=== PATIENT | female | born 2000 | race Caucasian/White ===

== ENCOUNTER 2023-12-28 00:29 | Day surgery (SDC) | payer OTHER, SELFPAY ==
[2023-12-26 13:29] VITALS: BMI 23.4
--- NOTE | 2023-12-26 13:34 | PC.NURSE ---
Addendum entered by Jcarlos Sykes RN 12/26/23 15:36: Patient rescheduled to arrive at 1130am on 12-28-2023 for surgery at 130pm. Original Note: Report to the Outpatient Waiting Room, entrance under the green pavilion located off [facility], at time _1200_ on date _[id number]_. Planned Procedure Time: _2pm_.? Time changes happen often and if your time is changed the preop area will call you the afternoon before. - You and your visitor will be asked to self-screen and do not enter if you have any COVID symptoms. Please call surgeon if you need to reschedule. - A mask is optional within the hospital at this time. Patients may have clear liquids (water, carbonated beverages, clear teas, apple juice) until 3 hours prior to surgery with a maximum of 20 ounces. - No food from midnight until time of surgery and no smoking Take only the following medications with a SIP of water on the morning of surgery: ____None DO NOT STOP ANY OF YOUR OTHER PRESCRIPTION MEDICATIONS PRIOR TO SURGERY EXCEPT THE FOLLOWING Medications to discontinue per physician ___None Please no make-up, nail montserratian, hairspray, perfume, deodorant, or body powder the day of surgery.? No jewelry (including any body piercings) or valuables the day of surgery, leave them at home.? Please take a shower or bath the night before, or the morning of, surgery with an antibacterial soap.? Wear comfortable, loose fitting clothing.? - Jewelry must be removed prior to entering the operating room.? Rings and piercings that are not removed may be cut off. - The hospital will not accept responsibility for valuables.? - Please leave all valuables, including medications, at home the day of surgery. If you are going home after surgery, a licensed local tanker truck driver must drive you home.? - NO public transportation without another adult if you receive anesthesia. - We recommend that an adult stay with you for 24 hours following discharge. - We also recommend that you do not drive, make important decision, drink alcoholic beverages, or take any drugs that were not prescribed by your health care provider for at least 24 hours after your discharge time. Follow any additional instructions given to you from your surgeon. Telephone instructions given to __Marijaamie___and asked if any additional questions and then verbalized understanding. Patient advised to call surgeon office or pre surgery nurse liaison [phone] if any additional questions.
[2023-12-28 11:44] VITALS: BP 104/65; PULSE 83; RESP 18; TEMP 36.3; O2SAT 100
[2023-12-28] MEDS: ACETAMINOPHEN 500 MG TABLET 1000 MG PO (11:55)
[2023-12-28] MEDS: LACTATED RINGERS 1,000 ML 30 ML IV CONT (12:00)
--- NOTE | 2023-12-28 13:26 | P.PNAN_ITS ---
Anes - Initial Pre Proc Eval Procedure: Operation Date: 12/28/23 13:30 Proposed Procedures p Suction Dilation and Curettage - Everett Cat MD Date/Time: 12/28/23 13:26 Surgeon: Everett Cat MD Pre Op Diagnosis: Missed AB Patient Data Age: 23 Gender: F Height: 1.52 m Weight: 54.6 kg Last Vital Signs Temp 36.3 C L 12/28/23 11:44 Pulse 83 12/28/23 11:44 Resp 18 12/28/23 11:44 BP 104/65 12/28/23 11:44 Pulse Ox 100 12/28/23 11:44 O2 Del Method Room Air 12/28/23 11:44 Allergies Allergy/AdvReac Type Severity Reaction Status Date / Time shellfish derived Allergy Severe Swelling Verified 12/28/23 11:41 Home Medications Medication Instructions Recorded Confirmed Type No Home Medications 12/26/23 12/28/23 History Laboratory Tests 12/28/23 11:57 Blood Type B Negative Antibody Screen Positive Antibody Identification Pending Antigen Identification Pending JOHNATHAN, IgG Interpret Pending JOHNATHAN, Poly Interpret Pending JOHNATHAN, Complement Interp Pending Screen Not Reportable Baby's Blood Type Not Reportable Baby's JOHNATHAN Not Reportable Doses of RhIg Required Pending Patient hx anesthesia problems: none Family hx anesthesia problems: none Results Review: All pre-operative results and documents have been reviewed as part of the pre- operative evaluation. COUNT INCLUDES THE [facility] Social History Social History Tobacco type: e-cigarettes/vaping Alcohol intake: current Living arrangements: with family Spiritual care concerns: No Anes - Eval Final PreProcedure Day of Procedure 12/28/23 13:26 Patient weight: normal Heart: regular rate and rhythm Lungs: clear to auscultation and normal air movement Airway: Mallampati scale class II Neurological: alert and oriented Last oral intake: >/= 8 hours ASA classification: II Emergent: no Anesthetic plan: proceed Anesthesia type and monitoring: general GIVS and standard monitoring Results Review: All pre-operative results and documents have been reviewed as part of the pre- operative evaluation. Informed Consent: The patient's anesthetic plan and its attendant risks and benefits were discussed with the patient/family/POA. Questions were solicited and answers provided to the satisfaction of the patient/family/POA.
--- NOTE | 2023-12-28 14:22 | WPDHPUPDATE1 ---
History and Physical Update Update Date/Time: 12/28/23 14:22 History and Physical has been reviewed, including an updated exam of the patient. There are NO changes in the patient's condition. Risks, benefits, and alternatives have been discussed and questions answered. Patient agrees to proceed with procedure.
[2023-12-28] MEDS: LIDOCAINE HCL 1% LOCAL INJ 20 ML VIAL 10 ML INFILTRATE (14:49)
--- NOTE | 2023-12-28 14:54 | P.OP_ITS ---
Procedure Note - Detailed Date of Procedure 12/28/23 Pre-op Diagnosis Missed AB Post-op Diagnosis Same Procedure Performed Suction D&C Surgeon Everett Cat MD Anesthesia MAC Indications missed Findings normal-appearing vulva vagina and cervix to. Moderate amount of products conception within the uterus. 8 cm uterus Description of Procedure the patient was taken the operating room. She was prepped and draped in dorsal lithotomy position after induction of mac anesthesia. A speculum was placed in the vagina. Cervix grasped with tenaculum. The cervix was dilated to about 1 cm Using Rushing dilators. A 8. Guamanian curved curette was used to perform suction D&C. The curette was introduced and vacuum was applied. The curette was removed over all surfaces of the intrauterine cavity multiple times. This was done until all the surfaces were clear and had the familiar grainy texture they can be felt through the instrument. A sharp curette was then used to curettage all the surfaces. The suction cup was then reapplied 1 more time to remove any debris. The instruments were removed. The speculum and tenaculum were removed. The patient tolerated the procedure well. She was taken recovery room stable condition. Estimated Blood Loss 50 Drains No Packing No Pathology Yes Complications No immediate complications Condition Stable Disposition PACU
[2023-12-28 14:55] VITALS: BP 98/76; PULSE 81; RESP 16; O2SAT 99
--- NOTE | 2023-12-28 15:01 | SUR.PHASEII ---
Per Dr. Cat patient does not need rhogam.
[2023-12-28 15:25] VITALS: BP 98/63; PULSE 86; O2SAT 100
[2023-12-28 15:55] VITALS: BP 116/86; PULSE 82; RESP 20
== END 2023-12-28 16:05 | disposition home or self-care (01) ==
PROVIDERS: PCP Pediatrics; Visit Provider Obstetrics & Gynecology
PROC: (CPT 59820; principal; 2023-12-28 13:30)
DX: O02.1 Missed abortion (principal); F17.290 Nicotine dependence, other tobacco product, uncomplicated
CPT/HCPCS: 59820; 36415; 85461; 86850; 86880; 86900; 86901; 86902; 88305; A9270; J2250; J2704; J3010; J7120